=== PATIENT | female | born 1975 | race Caucasian/White ===

== ENCOUNTER 2017-07-07 13:07 | Emergency (ER) | payer OTHER ==
[~2017-07-07] VITALS: Ht 162.6 cm; Wt 117.1 kg
[~2017-07-07 13:07] MED LIST: ADVAIR HFA120 INHALA IH; CLINDAMYCIN HC300 MG PO; CYMBALTA30 MG PO; INDOCIN25 MG PO; MACROBID100 MG PO; METFORMIN HCL500 MG PO; MOTRIN800 MG PO; NAPROSYN500 MG PO; PERCOCET 5/31 TABLET PO; PERCOCET 7.51 TABLET PO; PHENERGAN25 MG PR; PROMETHAZINE HC25 M1 PO; PROVENTIL HFA6.7 GM IH; PROVENTIL2.5 MG/3 M IH; PYRIDIUM200 MG PO; TYLENOL EXTRA500 MG PO; TYLENOL WITH C1 EACH PO; TYLOX1 CAPSULE PO; ULTRACET1 TABLET PO; VICODIN 5-5001 EACH PO
[2017-07-07 14:07] LABS: HEMATOCRIT 39.1 % (36.0-46.0); HEMOGLOBIN 13.5 G/DL (11.9-15.5); MCH 28.3 PG (29.0-34.0); MCHC 34.5 G/DL (30.0-36.0); NRBC (%) 0.3 /100 WBC (0-0); PLATELET COUNT 161 K/uL (156-360); RBC DIS.WIDTH-CV 13.6 % (11.8-14.6); RBC DIS.WIDTH-SD 40.3 % (39-53); RED BLOOD COUNT 4.77 M/uL (3.80-5.20)
[2017-07-07 14:13] LABS: ALBUMIN 3.6 g/dL (3.2-4.8); CHLORIDE 101 mEq/L (99-109); POTASSIUM 4.4 mEq/L (3.7-5.4); SODIUM 136 mEq/L (136-147)
[2017-07-07 14:13] LABS: APPEARANCE CLEAR ((CLEAR)); BILIRUBIN NEGATIVE; BLOOD SMALL; COLOR YELLOW ((YELLOW)); GLUCOSE (STRIP) NEGATIVE; KETONES NEGATIVE; LEUKOCYTES NEGATIVE; NITRITE NEGATIVE; PROTEIN (STRIP) NEGATIVE; SPECIFIC GRAVITY 1.014 (1.000-1.030); UROBILINOGEN 0.2 MG/DL (0.2-1.0)
[2017-07-07 14:15] LABS: GLUCOSE 215 mg/dL (70-99)
[2017-07-07 14:17] LABS: TOTAL BILIRUBIN 0.5 mg/dL (0.0-1.0)
[2017-07-07 14:18] LABS: BACTERIA NONE SEEN /HPF; EPITHELIAL CELLS RARE /HPF; HYALINE CASTS 0-5 /LPF; MUCUS TRACE /LPF; RED BLOOD CELLS 0-5 /HPF (0-5); UCUL ADDED? NO; WHITE BLOOD CELLS 0-5 /HPF (0-5)
[2017-07-07 14:19] LABS: ALKALINE PHOSPHATASE 90 IU/L (3-129); CREATININE 0.7 mg/dL (0.6-1.3); GFR ESTIMATE (CALCULATED) > 59 mL/min/
[2017-07-07 14:20] LABS: UREA NITROGEN (BUN) 11 mg/dL (9-23)
[2017-07-07 14:21] LABS: AST (GOT) 29 IU/L (2-34)
[2017-07-07 14:22] LABS: ALT (GPT) 21 IU/L (3-49); TROP-I INTERPRETATION NEGATIVE; TROPONIN-I < 0.01 ng/mL (0.0-0.30)
[2017-07-07] MEDS ORDERED: VENTOLIN HFA18 GM IH (15:24)
[2017-07-07 15:36] VITALS: BP 131/66
== END 2017-07-07 15:37 | disposition home or self-care (01) ==
LOC: RME 13:07 → EME 13:07 → RME 15:37
PROVIDERS: Nurse Practitioner Family
DX: J06.9 Acute upper respiratory infection, unspecified (principal); J45.909 Unspecified asthma, uncomplicated; M79.89 Other specified soft tissue disorders; F17.200 Nicotine dependence, unspecified, uncomplicated; Z87.01 Personal history of pneumonia (recurrent); Z85.41 Personal history of malignant neoplasm of cervix uteri; Z87.19 Personal history of other diseases of the digestive system; Z90.49 Acquired absence of other specified parts of digestive tract; Z90.710 Acquired absence of both cervix and uterus; Z88.7 Allergy status to serum and vaccine; Z88.8 Allergy status to other drugs, medicaments and biological substances; Z88.6 Allergy status to analgesic agent; Z88.5 Allergy status to narcotic agent; Z88.0 Allergy status to penicillin
CPT/HCPCS: 71046; 80053; 81003; 83880; 84484; 85027; 93005; 94640; 99281; 99285

== ENCOUNTER 2017-07-29 13:44 | Emergency (ER) | payer OTHER ==
[~2017-07-29] VITALS: Ht 162.6 cm; Wt 111.9 kg
[~2017-07-29 13:44] MED LIST changes: +VENTOLIN HFA18 GM IH
[2017-07-29 14:54] LABS: HEMATOCRIT 43.6 % (36.0-46.0); HEMOGLOBIN 14.8 G/DL (11.9-15.5); MCH 28.1 PG (29.0-34.0); MCHC 33.9 G/DL (30.0-36.0); MCV 82.7 FL (83-99); PLATELET COUNT 166 K/uL (156-360); RBC DIS.WIDTH-CV 12.8 % (11.8-14.6); RBC DIS.WIDTH-SD 38.7 % (39-53); RED BLOOD COUNT 5.27 M/uL (3.80-5.20); WHITE BLOOD COUNT 5.4 K/uL (4.1-10.2)
[2017-07-29 15:03] LABS: CHLORIDE 101 mEq/L (99-109); POTASSIUM 3.7 mEq/L (3.7-5.4); SODIUM 138 mEq/L (136-147)
[2017-07-29 15:04] LABS: GLUCOSE 187 mg/dL (70-99)
[2017-07-29 15:08] LABS: CREATININE 0.7 mg/dL (0.6-1.3); GFR ESTIMATE (CALCULATED) > 59 mL/min/
[2017-07-29 15:09] LABS: UREA NITROGEN (BUN) 9 mg/dL (9-23)
[2017-07-29 15:27] LABS: APPEARANCE CLEAR ((CLEAR)); BILIRUBIN NEGATIVE; BLOOD SMALL; COLOR YELLOW ((YELLOW)); GLUCOSE (STRIP) NEGATIVE; KETONES NEGATIVE; LEUKOCYTES NEGATIVE; NITRITE NEGATIVE; PROTEIN (STRIP) NEGATIVE; SPECIFIC GRAVITY 1.014 (1.000-1.030); UROBILINOGEN 0.2 MG/DL (0.2-1.0)
[2017-07-29 15:31] LABS: BACTERIA RARE /HPF; EPITHELIAL CELLS RARE /HPF; MUCUS TRACE /LPF; RED BLOOD CELLS 0-5 /HPF (0-5); WHITE BLOOD CELLS 0-5 /HPF (0-5)
[2017-07-29] MEDS ORDERED: PRAZOSIN HCL2 MG PO (16:17)
[2017-07-29] MEDS ORDERED: CELEXA20 MG PO (16:17)
[2017-07-29 16:28] VITALS: BP 142/69
== END 2017-07-29 16:30 | disposition home or self-care (01) ==
LOC: EME 13:44
PROVIDERS: Physician Assistant
DX: F19.239 Other psychoactive substance dependence with withdrawal, unspecified (principal); F32.9 Major depressive disorder, single episode, unspecified; F43.10 Post-traumatic stress disorder, unspecified; F17.210 Nicotine dependence, cigarettes, uncomplicated; J45.909 Unspecified asthma, uncomplicated; E11.9 Type 2 diabetes mellitus without complications; Z85.41 Personal history of malignant neoplasm of cervix uteri; Z88.0 Allergy status to penicillin; Z88.5 Allergy status to narcotic agent
CPT/HCPCS: 80048; 81003; 85027; 99281; 99285